=== PATIENT | male | born 1965 | race Caucasian/White ===

== ENCOUNTER 2017-04-25 12:47 | Emergency (ER) | payer SELFPAY ==
[~2017-04-25] VITALS: Ht 175.3 cm; Wt 109.0 kg
[2017-04-25 12:51] VITALS: BP 146/92; PULSE 73; RESP 15; TEMP 98.3; O2SAT 98
[2017-04-25] MEDS ORDERED: ZOLO100T PO (13:35)
[2017-04-25] MEDS ORDERED: ROSU40 PO (13:35)
[2017-04-25] MEDS ORDERED: LISI10TA3 PO (13:35)
[2017-04-25] MEDS ORDERED: ASPI81CH CHEW (13:35)
[2017-04-25] MEDS ORDERED: CARV12.52 PO (13:35)
[2017-04-25] MEDS ORDERED: ASPIRIN 325 MG TAB PO ONE (13:45)
[2017-04-25] MEDS ORDERED: FAMOTIDINE 20 MG/2 ML VIAL IV PUSH ONE (13:45)
--- NOTE | 2017-04-25 13:50 | RADRPT ---
EXAM DATE/TIME: 04/25/2017 13:46 [place] COMPARISON: No previous studies available for comparison. INDICATIONS : Lower chest burning MEDICAL HISTORY : 2 heart attacks. SURGICAL HISTORY : Coronary artery stent. ENCOUNTER: Initial ACUITY: 1 day PAIN SCORE: 0/10 LOCATION: Bilateral chest FINDINGS: Portable AP view of the chest demonstrates a normal-sized cardiac silhouette. No effusion, consolidat ion, or pneumothorax is visualized. The bones and soft tissues demonstrate no acute abnormality. EKG lines overlie the patient. CONCLUSION: No acute cardiopulmonary abnormality is identified. Facundo Napier MD on April 25, 2017 at 13:46 Board Certified Radiologist. This report was verified electronically.
[2017-04-25 13:57] LABS: AUTOMATED NEUTROPHIL # 7.3 TH/MM3 (1.8-7.7); BASOPHIL % 0.4 % (0.0-2.0); EOSINOPHIL # 0.1 TH/MM3 (0-0.4); EOSINOPHIL % 0.6 % (0.0-4.0); HEMATOCRIT 41.4 % (39.0-51.0); HEMO FLAGS DIFF FINAL; LYMPH % 14.1 % (9.0-44.0); LYMPHOCYTE # 1.4 TH/MM3 (1.0-4.8); MEAN CELL VOLUME 90.2 FL (80.0-100.0); MEAN CORPUSCULAR HEMOGLOBIN 30.1 PG (27.0-34.0); MEAN CORPUSCULAR HGB CONC 33.3 % (32.0-36.0); MONO % 8.9 % (0.0-8.0); PLATELET COUNT 240 TH/MM3 (150-450); RED CELL DISTRIBUTION WIDTH 13.6 % (11.6-17.2); WHITE BLOOD COUNT 9.6 TH/MM3 (4.0-11.0)
[2017-04-25 14:06] LABS: APTT (PATIENT) 24.9 SEC (24.3-30.1); PROTHROMBIN TIME - PATIENT 10.5 SEC (9.8-11.6)
[2017-04-25 14:18] LABS: ANION GAP 5 MEQ/L (5-15); BICARBONATE 26.6 MEQ/L (21.0-32.0); BLOOD UREA NITROGEN 16 MG/DL (7-18); CHLORIDE 104 MEQ/L (98-107); GLOMERULAR FILTRATION RATE 77 ML/MIN (>89); MAGNESIUM 2.1 MG/DL (1.5-2.5); POTASSIUM 4.3 MEQ/L (3.5-5.1); SODIUM (NA) 136 MEQ/L (136-145)
[2017-04-25 14:21] LABS: CREATINE KINASE 154 U/L (39-308)
[2017-04-25 14:33] LABS: CKMB 2.2 NG/ML (0.5-3.6)
--- NOTE | 2017-04-25 14:37 | PD ---
HPI Chief Complaint: Chest Pain Time Seen by Provider: 13:22 Travel History International Travel<30 days: No Contact w/Intl Traveler<30days: No Traveled to known affect area: No History of Present Illness HPI 52-year-old male that presents to the ED for evaluation of possible chest pain. Per patient has a history of heart disease and has had 2 heart attacks with the last one being in 2014. Patient follows with a low vision therapist in [place] for his from. 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 Per patient he has some PTSD secondary to the heart attacks in the past and he is not sure if that is related. Patient states that the pain is not really painful but more like a burning sensation. Per patient the symptoms started today. Per patient he feels like there is burning on his epigastric area and moves to his throat. Per patient does somewhat different from his previous attacks but he says that on his previous attacks he had severe pain similar to it except he did not have the burning sensation in his throat more on the epigastric area. He is mainly concerned that he might have another heart event. He denies any shortness of breath. He denies any fevers chills or sweats. He does have a history of hypertension, high cholesterol and previous heart disease. No diabetes. No trauma. He took an antiacid before coming in says that that seemed to help a little bit but not completely which is what made him come. Per patient currently he has no pain. He does take a baby aspirin every day and took one today. Burning sensation per patient is at 3 out of 10 and is not really painful again. Feels more like an irritation. PFSH Past Medical History Anxiety: Yes Cardiac Catheterization: Yes High Cholesterol: Yes Diminished Hearing: No Hypertension: Yes Psychiatric: Yes (PTSD) Past Surgical History Coronary Stent: Yes Social History Alcohol Use: Yes (NIGHTLY) Tobacco Use: No Substance Use: No Allergies-Medications (Allergen,Severity, Reaction): Coded Allergies: No Known Allergies (Unverified , 04/25/17) Reported Meds & Prescriptions Reported Meds & Active Scripts Active Reported Carvedilol 12.5 Mg Tab 12.5 Mg PO BID Zoloft (Sertraline HCl) 100 Mg Tab 100 Mg PO DAILY Lisinopril 10 Mg Tab 10 Mg PO DAILY Aspirin 81 Mg Chew 81 Mg CHEW DAILY Crestor (Rosuvastatin Calcium) 40 Mg Tab 80 Mg PO DAILY Review of Systems Except as stated in HPI: all other systems reviewed are Neg Physical Exam Narrative GENERAL: SKIN: Warm and dry. HEAD: Atraumatic. Normocephalic. EYES: Pupils equal and round. No scleral icterus. No injection or drainage. ENT: No nasal bleeding or discharge. Mucous membranes pink and moist. Tongue is midline. No uvula deviation. NECK: Trachea midline. No JVD. CARDIOVASCULAR: Regular rate and rhythm. No murmurs, S3, S4. RESPIRATORY: No accessory muscle use. Clear to auscultation. Breath sounds equal bilaterally. GASTROINTESTINAL: Abdomen soft, non-tender, nondistended. Hepatic and splenic margins not palpable. MUSCULOSKELETAL: Extremities without clubbing, cyanosis, or edema. No obvious deformities. Full range of motion of the upper and lower extremities bilaterally. 2+ pulses bilaterally. NEUROLOGICAL: Awake and alert. No obvious cranial nerve deficits. Motor grossly within normal limits. Five out of 5 muscle strength in the arms and legs. Normal speech. PSYCHIATRIC: Appropriate mood and affect; insight and judgment normal. Data Data Last Documented VS Vital Signs Date Time Temp Pulse Resp B/P (MAP) Pulse Ox O2 Delivery O2 Flow Rate FiO2 04/25/17 13:26 72 04/25/17 12:51 98.3 15 146/92 (110) 98 Orders Orders Electrocardiogram (04/25/17 ) Electrocardiogram (04/25/17 13:31) Basic Metabolic Panel (Bmp) (04/25/17 13:31) Ckmb (Isoenzyme) Profile (04/25/17 13:31) Complete Blood Count With Diff (04/25/17 13:31) Magnesium (Mg) (04/25/17 13:31) Prothrombin Time / Inr (Pt) (04/25/17 13:31) Act Partial Throm Time (Ptt) (04/25/17 13:31) Troponin I (04/25/17 13:31) Lipase (04/25/17 13:31) Chest, Single Ap (04/25/17 13:31) Ecg Monitoring (04/25/17 13:31) Bilateral Bp Monitoring (04/25/17 13:31) Iv Access Insert/Monitor (04/25/17 13:31) Oximetry (04/25/17 13:31) Aspirin (Aspirin) (04/25/17 13:45) Famotidine Inj (Pepcid Inj) (04/25/17 13:45) CKMB (04/25/17 13:40) CKMB% (04/25/17 13:40) Ed Discharge Order (04/25/17 15:27) Labs Laboratory Tests Test 04/25/17 13:40 White Blood Count 9.6 TH/MM3 Red Blood Count 4.60 MIL/MM3 Hemoglobin 13.8 GM/DL Hematocrit 41.4 % Mean Corpuscular Volume 90.2 FL Mean Corpuscular Hemoglobin 30.1 PG Mean Corpuscular Hemoglobin Concent 33.3 % Red Cell Distribution Width 13.6 % Platelet Count 240 TH/MM3 Mean Platelet Volume 8.1 FL Neutrophils (%) (Auto) 76.0 % Lymphocytes (%) (Auto) 14.1 % Monocytes (%) (Auto) 8.9 % Eosinophils (%) (Auto) 0.6 % Basophils (%) (Auto) 0.4 % Neutrophils # (Auto) 7.3 TH/MM3 Lymphocytes # (Auto) 1.4 TH/MM3 Monocytes # (Auto) 0.8 TH/MM3 Eosinophils # (Auto) 0.1 TH/MM3 Basophils # (Auto) 0.0 TH/MM3 CBC Comment DIFF FINAL Differential Comment Prothrombin Time 10.5 SEC Prothromb Time International Ratio 1.0 RATIO Activated Partial Thromboplast Time 24.9 SEC Blood Urea Nitrogen 16 MG/DL Creatinine 1.02 MG/DL Random Glucose 94 MG/DL Calcium Level 9.3 MG/DL Magnesium Level 2.1 MG/DL Sodium Level 136 MEQ/L Potassium Level 4.3 MEQ/L Chloride Level 104 MEQ/L Carbon Dioxide Level 26.6 MEQ/L Anion Gap 5 MEQ/L Estimat Glomerular Filtration Rate 77 ML/MIN Total Creatine Kinase 154 U/L Creatine Kinase MB 2.2 NG/ML Troponin I 0.02 NG/ML Lipase 118 U/L [facility] Medical Decision Making Medical Screen Exam Complete: Yes Emergency Medical Condition: Yes Medical Record Reviewed: Yes Interpretation(s) CBC & BMP Diagram 04/25/17 13:40 Calcium Level 9.3, Magnesium Level 2.1 Last Impressions Chest X-Ray 04/25/17 1331 Signed Impressions: Service Date/Time: Tuesday, April 25, 2017 13:46 - CONCLUSION: No acute cardiopulmonary abnormality is identified. Facundo Napier MD troponin and CKMB negative EKG shows sinus rhythm with no sign of acute ischemia or arrythmia. Read by me and attending. Differential Diagnosis Chest pain versus atypical chest pain versus ACS versus heartburn versus epigastric pain versus peptic ulcer disease Narrative Course 52-year-old male that presents to the ED for evaluation of chest pain. Patient was properly examined and was found to have signs and symptoms of unclear etiology. There is definite some concern for ACS is patient does have a history of this in the past. Labs and imaging were ordered. Labs and imaging showed no sign of acute disease. Patient feels improved and has had no symptoms or chest pain at this time. Patient's symptoms per himself does not appear to be similar to his previous heart attack and appears to be more heartburn related. He has been drinking a lot coffee as well as energy drinks as well as drinking secondary to being here for concerts. I do not believe this is a pulmonary embolism as he has no chest pain or tachycardia or any hint of shortness of breath. Patient for she does have risk factors for heart disease. I did offer the patient admission for chest pain center rule out but he declined stating that he's had a normal stress test within the past 6 months. He himself states that he would rather go home and sleep off as he believes that this might be related to anxiety. I did give the option multiple times of coming to to be admitted to the chest pain center but he declines at this time. Patient was told that if anything changes he is to come back to the ED. Dr Hirsch my attending was made aware of all findings and agrees with plan. AMA: The risks of leaving against medical advice without further evaluation treatment were discussed with the patient. These risks include cardiac dysfunction, cardiac dysrhythmia, possible heart attack, possible stroke or . The patient indicated understanding of these risks and appeared to have the capacity to make this decision. At this time patient was told to take aspirin every day. Follow up with PCP. See ED for any worsening symptoms. From his history and physical this could likely be heartburn but he was told that we cannot tell him 100% with of the specific testing. He agrees and understands plan. Diagnosis Primary Impression: Atypical chest pain Patient Instructions: General Instructions Additional Instructions: aspirin every day. Anything changes come back to the ED. See ED if worsening symptoms. Med/Other Pt SpecificInfo: No Change to Meds Disposition: 01 DISCHARGE HOME Condition: Stable Yoseph Bradshaw Apr 25, 2017 14:37
[2017-04-25 15:37] VITALS: BP 113/64
--- NOTE | 2017-04-26 17:28 | EKG ---
Date Performed: 04/25/2017 Time Performed: 12:59:58 PTAGE: 52 years EKG: Sinus rhythm INTRAVENTRICULAR CONDUCTION DELAY INFERIOR MYOCARDIAL INFARCTION ABNORMAL ECG NO PREVIOUS TRACING DOCTOR: Mathieu Juan Interpretating Date/Time 04/26/2017 17:26:40
== END 2017-04-25 16:24 | disposition home or self-care (01) ==
LOC: NEPE 12:47
DX: R07.89 Other chest pain (principal); I25.2 Old myocardial infarction; I10 Essential (primary) hypertension; E78.00 Pure hypercholesterolemia, unspecified; Z79.899 Other long term (current) drug therapy; Z95.5 Presence of coronary angioplasty implant and graft
CPT/HCPCS: 71010; 80048; 82550; 82552; 83690; 83735; 84484; 85025; 85610; 85730; 93005; 96374